=== PATIENT | male | born 2000 | race Caucasian/White ===

== ENCOUNTER 2021-07-15 13:22 | Emergency (ER) | payer OTHER, SELFPAY ==
--- NOTE | ~2021-07-15 | XR_ITS ---
EXAMINATION: XR foot LT min 3V DATE: 07/15/2021 13:57 INDICATION: Dorsal and medial left foot pain post injury with audible pop TECHNIQUE: Dorsoplantar, oblique and lateral views of the left foot were obtained. COMPARISON: None. FINDINGS: Alignment is normal. No fracture. Joint spaces are normal. There is an osseous excrescence with corti burak and medullary continuity extending distally from the dorsal/medial metaphyseal region of the seco nd metatarsal which could represent a small osteochondroma or sequela of old trauma. Mild soft tissue swelling over the dorsum of the midfoot. No ankle joint effusion. IMPRESSION: 1. No acute osseous abnormality. Reviewed, dictated and finalized at location B.
[2021-07-15 13:50] VITALS: BP 130/61; PULSE 76; RESP 16; TEMP 36.7; O2SAT 99
--- NOTE | 2021-07-15 14:15 | ED.LOWEXIN ---
HPI - Extremity Injury (Lower) General Chief Complaint: Extremity Injury, Lower Stated Complaint: L FOOT INJURY Time Seen by Provider: 07/15/21 14:08 Source: patient and RN notes reviewed Mode of arrival: ambulatory Limitations: no limitations History of Present Illness HPI Narrative: Patient presents today complaining of pain to his left foot. He sustained an injury when he was playing softball 10 days ago and heard a pop. Report swelling and bruising since then and states the bruising has resolved and most of the swelling has also resolved. Currently rates his pain at rest 3/10, which increases with weightbearing. He has been using ibuprofen with mild relief. States he has been compensating for his pain by walking on the outside of his left foot. Denies numbness or tingling. MD complaint: foot injury Related Data Home Medications Medication Instructions Recorded Confirmed No Home Medications 07/15/21 07/15/21 Allergies Allergy/AdvReac Type Severity Reaction Status Date / Time No Known Allergies Allergy Verified 07/15/21 13:48 Review of Systems Review of Systems: CONSTITUTIONAL: Denies body aches, fever, chills, or sweats. EYES: Denies visual changes, redness, or discharge. ENT: Denies rhinorrhea, congestion, sore throat, or otalgia. CARDIOVASCULAR: Denies chest pain, palpitations, or edema. RESPIRATORY: Denies cough or dyspnea. GASTROINTESTINAL: Denies abdominal pain, nausea, vomiting, or diarrhea. GENITOURINARY: Denies dysuria or hematuria. SKIN: Denies rash, itching, or wounds. MUSCULOSKELETAL: Denies back pain, or myalgia.+ Left foot pain NEUROLOGIC: Denies headache, numbness, tingling, or weakness. PSYCH: Denies depression or anxiety. PMFSH Comments At time of signature, I have reviewed and agree with nursing past medical, surgical, social and family history unless otherwise noted. Please see nursing chart for further information. There is no relevant family history pertinent to the presenting complaint Exam Narrative: GENERAL: Well-appearing, well-nourished, and in no acute distress. HEAD: Normocephalic, atraumatic. EYES: EOMI. No redness or drainage. Conjunctivae normal. ENT: Mucous membranes pink and moist. NECK: Normal AROM. CHEST: No respiratory distress. EXTREMITIES: Left foot: Tenderness along the medial midfoot with mild swelling along the midfoot. No ecchymosis or erythema noted. No crepitus or deformity noted. Pain with active dorsiflexion. Distal sensation intact. Capillary refill normal. Pedal pulse normal. SKIN: Warm, dry, no rash. Capillary refill normal. Normal skin turgor. NEURO: No focal deficits. Alert and oriented x3. Gait steady. PSYCH: Normal affect. No signs of depression or anxiety. Course Course Level of Care: Express Care Visit Vital Signs Vital signs: Vital Signs Temperature 98.1 F 07/15/21 13:50 Pulse Rate 76 07/15/21 13:50 Respiratory Rate 16 07/15/21 13:50 Blood Pressure 130/61 07/15/21 13:50 Pulse Oximetry 99 07/15/21 13:50 Temperature 98.1 F 07/15/21 13:50 Pulse Rate 76 07/15/21 13:50 Respiratory Rate 16 07/15/21 13:50 Blood Pressure 130/61 07/15/21 13:50 Pulse Oximetry 99 07/15/21 13:50 Reviewed. Pt has been instructed to follow up with his PCP regarding his elevated blood pressure today. MDM - Extremity Injury (Lower) Differential Diagnosis Differential diagnosis: Likely other (Foot fracture, foot sprain, contusion) Imaging Data Radiologist's impression: ITS Impressions Foot X-Ray 07/15/21 13:59 IMPRESSION: 1. No acute osseous abnormality. Critical Care Time Critical Care Time Critical Care Time: No Discharge Plan Discharge Clinical Impression: Sprain of foot, left Qualifiers: Encounter type: initial encounter Qualified Code(s): S93.602A - Unspecified sprain of left foot, initial encounter Patient Disposition: Home, Self-Care Condition: Stable Instructions: Foot S
== END 2021-07-15 14:23 | disposition home or self-care (01) ==
PROVIDERS: Emergency Provider Nurse Practitioner
DX: S93.602A Unspecified sprain of left foot, initial encounter (principal); X58.XXXA Exposure to other specified factors, initial encounter; Y93.64 Activity, baseball
CPT/HCPCS: 73630; 99213; G0463